=== PATIENT | male | born 1995 | race Caucasian/White ===

== ENCOUNTER 2023-10-02 15:53 | Outpatient (REF) | payer MEDICAID, SELFPAY ==
--- NOTE | ~2023-10-02 | XR_ITS ---
EXAMINATION: XR ANKLE, RIGHT CLINICAL INFORMATION: Right ankle pain after trauma COMPARISON: None available. TECHNIQUE: AP, lateral, and mortise views of the right ankle. FINDINGS: Bones of the ankle have normal alignment. The talocrural joint space and syndesmotic space are normal. No acute fracture or subluxation. There is mild soft tissue swelling overlying the lateral malleolus. Very small ossicle projects distal to the tip of the medial malleolus. No acute fracture in this region. XR/XR ankle RT min 3V IMPRESSION: * There appears to be mild soft tissue swelling at the lateral ankle. * No acute osseous injury. There is no acute fracture or subluxation at the right ankle.
== END 2023-10-02 15:54 | disposition home or self-care (01) ==
LOC: HO.XRAY 15:53
PROVIDERS: PCP Family Medicine; Visit Provider Student in an Organized Health Care Education/Training Program
DX: M25.571 Pain in right ankle and joints of right foot (principal)
CPT/HCPCS: 73610